=== PATIENT | male | born 1960 | race American Indian/Alaskan Native ===

== ENCOUNTER 2016-11-13 07:04 | Day surgery (SDC) | payer OTHER ==
[~2016-11-13 07:04] MED LIST: Lactated Ringers 1,000 ML IV SCH; Sodium Chloride 0.9% 10 ML Syringe FLUSH PRN
[2016-11-13] MEDS ORDERED: Famotidine 20 MG/2 ML SDV IV ONE (07:05)
[2016-11-13] MEDS ORDERED: Ketorolac 30 MG/ML SDV IVPUSH ONE (07:05)
[2016-11-13] MEDS ORDERED: Bupivacaine 0.5% 10 ML SDV INJECT ONE ×3 (07:05→09:50)
[2016-11-13] MEDS ORDERED: Ondansetron 4 MG/2 ML SDV IV ONE (07:05)
[2016-11-13] MEDS ORDERED: Propofol 1,000 MG/100 ML SDV IV ONE (07:05)
[2016-11-13] MEDS ORDERED: Lidocaine 2% 20 ML MDV INJECT ONE (07:05)
[2016-11-13] MEDS ORDERED: Propofol 200 MG/20 ML SDV IV ONE (07:05)
[2016-11-13] MEDS ORDERED: fentaNYL 100 MCG/2 ML SDV IV ONE (07:05)
[2016-11-13] MEDS ORDERED: Midazolam 1 MG/ML 2 ML SDV IV ONE (07:05)
[2016-11-13] MEDS ORDERED: Glycopyrrolate 0.2 MG/ML 2 ML SDV IV ONE (07:05)
[2016-11-13] MEDS ORDERED: Lidocaine 1% 30 ML SDV INJECT ONE ×3 (07:05→09:50)
[2016-11-13] MEDS ORDERED: ceFAZolin 1 GM in Premix Bag 1 BAG IV ONE (07:30)
[2016-11-13] MEDS ORDERED: Lidocaine 2% 20 ML MDV ONE (07:56)
[2016-11-13] MEDS ORDERED: fentaNYL 100 MCG/2 ML SDV ONE (07:56)
[2016-11-13] MEDS ORDERED: Ketorolac 30 MG/ML SDV ONE (07:56)
[2016-11-13] MEDS ORDERED: Ondansetron 4 MG/2 ML SDV ONE (07:56)
[2016-11-13] MEDS ORDERED: Midazolam 1 MG/ML 2 ML SDV ONE (07:56)
[2016-11-13] MEDS ORDERED: Glycopyrrolate 0.2 MG/ML 2 ML SDV ONE (07:56)
[2016-11-13] MEDS ORDERED: Famotidine 20 MG/2 ML SDV ONE (07:57)
[2016-11-13] MEDS ORDERED: Phenylephrine 1% 10 MG/ML SDV ONE (07:57)
[2016-11-13] MEDS ORDERED: ePHEDrine 50 MG/ML SDV ONE (07:57)
[2016-11-13] MEDS ORDERED: Succinylcholine 200 MG/10 ML MDV ONE (07:57)
[2016-11-13] MEDS ORDERED: Bupivacaine 0.5% 10 ML SDV ONE (07:59)
[2016-11-13] MEDS ORDERED: Lidocaine 1% 30 ML SDV ONE (07:59)
[2016-11-13] MEDS ORDERED: Acetaminophen/oxyCODONE 325-5 MG Tab PO PRN (10:10)
--- NOTE | 2016-11-13 10:12 | PCM.OPNOTE ---
- General Post-Op/Procedure Note Date of Surgery/Procedure: 11/13/16 Operative Procedure(s): right foot retrocalcaneal bone spur excision Pre Op Diagnosis: Right foot retrocalcaneal exostosis Post-Op Diagnosis: Right foot retrocalceanal exostectomy Anesthesia Technique: Local, MAC Primary Surgeon: Zuleika Vázquez EBL in mLs: 5 Complications: none Condition: Good Free Text/Narrative:: Pt tolerated procedure well and was transported to pacu with vss and vascular status intact to right foot. Well padded dressing with cam boot applied.
[2016-11-13 11:52] VITALS: BP 120/77
--- NOTE | 2016-11-13 15:11 | OR ---
DATE: 11/13/2016 PREOPERATIVE DIAGNOSIS: Right foot retrocalcaneal exostosis. POSTOPERATIVE DIAGNOSIS: Right foot retrocalcaneal exostosis. PROCEDURE PERFORMED: Right foot retrocalcaneal exostectomy. ANESTHESIA: Local MAC with preoperative local block of 10 mL 1:1 mixture of 1% lidocaine plain and 0.5% Marcaine plain. TOURNIQUET TIME: 48 minutes of pneumatic ankle tourniquet. ESTIMATED BLOOD LOSS: Minimal. SPECIMEN: None. COMPLICATIONS: None. INDICATIONS: Sky is a 56-year-old male who presents with large spur on the back of his right heel. He states that he had his left heel spur removed a few years ago, states he was back into his regular shoes at 4 weeks postoperative and has not had any issues since then. He does have a very large palpable spur at the back of his right heel that is painful for him. It is hard to wear shoes due to pressure in the area. He has tried cushioning, padding, and different shoes with no relief. X-rays of the right heel performed at [facility] and also preoperative view today show spurring at the retrocalcaneal area, there does not appear to be any calcifications within the tendon. The patient voiced good understanding of proposed procedure and possible complications, and elects to have surgery at this time. DESCRIPTION OF PROCEDURE: The patient was taken to the operating room, lying in the supine position. After adequate anesthesia induction as described above, the right foot was prepped and draped in the usual sterile fashion. A pneumatic ankle tourniquet was inflated to 225 mmHg. He was moved to a lateral position for the procedure. Attention was then directed to the right posterior calcaneus, where an approximately 4 cm linear incision was made, just lateral to the Achilles tendon, overlying the bony prominence. Sharp and blunt dissection was performed, down to the level of the bony prominence. A #15 blade was used to clear the soft tissue off the bony prominence. A rongeur and osteotome were used to remove the prominence at the lateral calcaneus. It did not involve the tendon and the Achilles tendon was left intact. The area was then rasped with a bone rasp to ensure there were no rough edges. A fluoroscopy was used to verify adequate resection of the bone spur. The area was then again checked to ensure adequate bone removal. The area was then irrigated with copious amounts of sterile saline. The deep closure was closed with 0 Vicryl, and skin closure was completed with 4-0 nylon. The area was dressed with Xeroform to the incision site, fluffs, Webril, and Job wrap. He will be placed in a CAM boot with a heel lift. The patient tolerated anesthesia and procedure well and was transferred to the recovery room with vital signs stable and vascular status intact as noted by immediate hyperemia to all digits upon deflation of the right ankle tourniquet. He was then discharged home once he met hospital discharge requirements. [facility] /[id number]
== END 2016-11-13 11:35 | disposition home or self-care (01) ==
LOC: DL.SDS 07:04
PROVIDERS: ATTEND Podiatrist
DX: M77.31 Calcaneal spur, right foot (principal); I10 Essential (primary) hypertension; E78.5 Hyperlipidemia, unspecified; E03.9 Hypothyroidism, unspecified; K21.9 Gastro-esophageal reflux disease without esophagitis; Z98.890 Other specified postprocedural states; Z79.899 Other long term (current) drug therapy
CPT/HCPCS: 28119; J0690; J1885; J2250; J2405; J2704; J3010; J7120; J3490; S0028

== ENCOUNTER 2021-10-06 05:53 | Emergency (ER) | payer BC, OTHER ==
[2021-10-06] MEDS ORDERED: Sodium Chloride 0.9% 10 ML Syringe FLUSH PRN (06:33)
[2021-10-06 06:40] VITALS: BP 158/96; PULSE 52
[2021-10-06] MEDS ORDERED: HYDROmorphone 1 MG/ML Syringe IVPUSH ONE (07:05)
[2021-10-06] MEDS ORDERED: Ondansetron 4 MG/2 ML SDV IV ONE (07:05)
[2021-10-06 07:17] LABS: ANION GAP 11.4 mEq/L (7-13)
[2021-10-06] MEDS ORDERED: Sodium Chloride 0.9% 1,000 ML IV ONE (07:36)
[2021-10-06] MEDS ORDERED: Tamsulosin 0.4 MG Cap.ER PO ONE (09:08)
== END 2021-10-06 09:20 | disposition home or self-care (01) ==
LOC: DL.ED 05:53
DX: N20.0 Calculus of kidney (principal); E03.9 Hypothyroidism, unspecified; I10 Essential (primary) hypertension; Z79.899 Other long term (current) drug therapy
CPT/HCPCS: 36415; 74176; 80053; 81003; 83735; 85025; 96361; 96374; 96375; 99284; A9270; J1170; J2405; J3490; J7030

== ENCOUNTER 2022-08-25 21:46 | Emergency (ER) | payer BC, OTHER ==
[2022-08-25] MEDS ORDERED: Sodium Chloride 0.9% 10 ML Syringe FLUSH PRN (22:15)
[2022-08-25] MEDS ORDERED: Ketorolac 30 MG/ML SDV IVPUSH ONE (22:18)
[2022-08-25 22:24] LABS: BASOPHILS PERCENT AUTO 0.4 % (0.0-1.0); HEMATOCRIT 42.3 % (40.0-54.0); HEMOGLOBIN 14.2 g/dL (14.0-18.0); LYMPHOCYTES PERCENT AUTO 30.2 % (20.5-50.1); MEAN CORPUSCULAR HEMOGLOBIN 33.6 pg (27.0-34.0); MEAN CORPUSCULAR HGB CONC 33.6 g/dL (33.0-35.0); MEAN CORPUSCULAR VOLUME 100.2 fL (80-100); NEUTROPHILS PERCENT AUTO 57.4 % (42.2-75.2); PLATELET COUNT,PLT 204 10^3/uL (150-450); RED BLOOD CELL COUNT 4.22 10^6/uL (4.6-6.2); WHITE BLOOD CELL COUNT,WBC 7.3 10^3/uL (5.0-10.0)
[2022-08-25 22:28] LABS: APPEARANCE,URINE CLEAR (CLEAR); BILIRUBIN,URINE NEGATIVE (NEGATIVE); COLOR,URINE YELLOW (YELLOW); GLUCOSE,URINE NEGATIVE (NEGATIVE); KETONES,URINE NEGATIVE (NEGATIVE); LEUKOCYTE ESTERASE,URINE NEGATIVE (NEGATIVE); NITRITE,URINE NEGATIVE (NEGATIVE); OCCULT BLOOD,URINE NEGATIVE (NEGATIVE); PROTEIN,URINE NEGATIVE (NEGATIVE); UROBILINOGEN,URINE 0.2 mg/dL (0.2-1.0)
[2022-08-25 22:37] LABS: A/G RATIO 1.1; ALBUMIN 3.8 g/dL (3.4-5.0); ANION GAP 9.9 mEq/L (7-13); BILIRUBIN TOTAL 0.5 mg/dL (0.2-1.0); BUN/CREATININE RATIO 12.1 (No establ ref range); CALCIUM 8.6 mg/dL (8.5-10.1); CREATININE 1.57 mg/dL (0.70-1.30); EST CRCL DRUG DOSING (CG) 58.9 mL/min; POTASSIUM,K 3.9 mmol/L (3.5-5.1); PROTEIN TOTAL,TP 7.3 g/dL (6.4-8.2)
[2022-08-25 23:52] VITALS: BP 137/78; PULSE 70
== END 2022-08-25 23:54 | disposition home or self-care (01) ==
LOC: DL.ED 21:46
DX: R10.9 Unspecified abdominal pain (principal); R07.89 Other chest pain; I10 Essential (primary) hypertension; K21.9 Gastro-esophageal reflux disease without esophagitis; E03.9 Hypothyroidism, unspecified; Z79.899 Other long term (current) drug therapy
CPT/HCPCS: 36415; 74176; 80053; 81003; 83690; 84484; 85025; 93005; 96374; 99284-25; J1885; J3490

== ENCOUNTER 2023-04-09 19:18 | Emergency (ER) | payer OTHER, BC ==
[2023-04-09] MEDS ORDERED: Sodium Chloride 0.9% 10 ML Syringe FLUSH PRN (19:26)
[2023-04-09] MEDS: Iopamidol 612 MG/ML 100 ML Bottle IVPUSH ONE (20:07)
[2023-04-09 20:32] LABS: BASOPHILS PERCENT AUTO 0.2 % (0.0-1.0); HEMATOCRIT 40.5 % (40.0-54.0); HEMOGLOBIN 13.7 g/dL (14.0-18.0); LYMPHOCYTES PERCENT AUTO 11.9 % (20.5-50.1); MEAN CORPUSCULAR HEMOGLOBIN 33.3 pg (27.0-34.0); MEAN CORPUSCULAR HGB CONC 33.8 g/dL (33.0-35.0); MEAN CORPUSCULAR VOLUME 98.3 fL (80-100); MONOCYTES PERCENT AUTO 7.2 % (2-8); NEUTROPHILS PERCENT AUTO 79.7 % (42.2-75.2); PLATELET COUNT,PLT 206 10^3/uL (150-450); RED BLOOD CELL COUNT 4.12 10^6/uL (4.6-6.2); WHITE BLOOD CELL COUNT,WBC 9.4 10^3/uL (5.0-10.0)
[2023-04-09 20:41] LABS: ALANINE AMINOTRANSFERASE,ALT 56 U/L (16-63); ALBUMIN 3.6 g/dL (3.4-5.0); ALKALINE PHOSPHATASE 52 U/L (46-116); ANION GAP 12.5 mEq/L (7-13); ASPARTATE AMNIOTRANSFERASE,AST 51 U/L (15-37); BILIRUBIN TOTAL 0.3 mg/dL (0.2-1.0); BLOOD UREA NITROGEN,BUN 23 mg/dL (7-18); BUN/CREATININE RATIO 16.7 (No establ ref range); CALCIUM 8.2 mg/dL (8.5-10.1); CARBON DIOXIDE,CO2 28 mmol/L (21-32); CHLORIDE,CL 105 mmol/L (98-107); CREATININE 1.38 mg/dL (0.70-1.30); GLUCOSE RANDOM 113 mg/dL (70-99); POTASSIUM,K 4.5 mmol/L (3.5-5.1); PROTEIN TOTAL,TP 7.1 g/dL (6.4-8.2); SODIUM,NA 141 mmol/L (136-145)
[2023-04-09 20:59] LABS: ESTIMATED GFR 59 mL/min (>=60); INR 0.9 (0.9-1.2); PROTHROMBIN TIME 9.5 SEC (9.0-12.0); PTT,PARTIAL THROMBOPLSTIN TIME 22.2 SEC (22.0-34.0)
[2023-04-09] MEDS: fentaNYL 100 MCG/2 ML SDV IVPUSH ONE (21:36)
== END 2023-04-09 22:10 ==
LOC: DL.ED 19:18
DX: S02.92XA Unspecified fracture of facial bones, initial encounter for closed fracture (principal); S01.81XA Laceration without foreign body of other part of head, initial encounter; S27.80 Injury of diaphragm; S37.812A Contusion of adrenal gland, initial encounter; S50.912A Unspecified superficial injury of left forearm, initial encounter; S35.09XA Other injury of abdominal aorta, initial encounter; S36.899A Unspecified injury of other intra-abdominal organs, initial encounter; I10 Essential (primary) hypertension; K21.9 Gastro-esophageal reflux disease without esophagitis; E03.9 Hypothyroidism, unspecified; Z79.899 Other long term (current) drug therapy; V89.2XXA Person injured in unspecified motor-vehicle accident, traffic, initial encounter
CPT/HCPCS: 36415; 70450; 71260; 72125; 74177; 80053; 85025; 85610; 85730; 86850; 86900; 86901; 86920; 86922; 96374; 99285; 99291; 99292; G0390; J3010; Q9967; 36430